=== PATIENT | male | born 1980 | race Hispanic/Latino ===

== ENCOUNTER 2017-02-21 07:26 | Emergency (ER) | payer OTHER ==
[2017-02-21 07:42] VITALS: BP 127/92
[2017-02-21] MEDS ORDERED: ZOFRAN ODT ONE (07:44)
[2017-02-21] MEDS ORDERED: ZOFRAN ODT PO ONE (07:47)
[2017-02-21 08:22] LABS: Basophils % (Auto) 0.1 % (0.0-1.8); Eosinophils % (Auto) 0.1 % (0.0-4.3); Hematocrit 47.2 % (35.5-45.6); Hemoglobin 15.9 gm/dl (11.8-15.2); Mean Corpuscular HGB Conc 34 % (32-34); Mean Corpuscular Hemoglobin 29 pg (28-32); Mean Corpuscular Volume 86 fl (84-94); Platelet Count 229 K/mm3 (140-440); Red Blood Count 5.48 M/mm3 (3.65-5.03); Red Cell Distribution Width 14.8 % (13.2-15.2)
[2017-02-21 08:28] LABS: Anion Gap 23 mmol/L; BUN/Creatinine Ratio 9.09; Blood Urea Nitrogen 10 mg/dL (9-20); Calcium 9.7 mg/dL (8.4-10.2); Carbon Dioxide 26 mmol/L (22-30); Glucose 100 mg/dL (75-100); Potassium 3.9 mmol/L (3.6-5.0); Sodium 142 mmol/L (137-145)
== END 2017-02-21 07:49 | disposition left against medical advice (07) ==
LOC: ED 07:26
DX: R11.10 Vomiting, unspecified (principal); R07.9 Chest pain, unspecified; Z53.21 Procedure and treatment not carried out due to patient leaving prior to being seen by health care provider
CPT/HCPCS: 36415; 80048; 84484; 85025; 93005; 93010; Q0162